=== PATIENT | male | born 1990 | race Caucasian/White ===

== ENCOUNTER 2016-09-07 10:38 | Emergency (ER) | payer OTHER, MEDICAID ==
[~2016-09-07] VITALS: Ht 188 cm; Wt 111.1 kg
[~2016-09-07 10:38] MED LIST: ALBU17AE3 IH; FLUT12AE6 IH; HYDR-757 PO; IPRA4AER IH; MELO15TA39 PO; PRD20T PO; TIOT4MIS2 IH; [UNRECOGNIZED DRUG - CODE] PO; advair
--- NOTE | 2016-09-07 10:52 | ED EENT ---
History of Present Illness General Stated Complaint: KNOT ON BACK OF RIGHT CALF Source: patient Exam Limitations: no limitations History of Present Illness Time seen by provider: 10:48 Initial Comments To ER with a palpable knot to the back of the calf on the right side since yesterday. His boss recently had a blood clot and he is concerned that he may have this too. No swelling in the leg. Timing/Duration: abrupt Severity: moderate Allergies and Home Medications Allergies Coded Allergies: No Known Drug Allergies (Unverified , 01/25/13) Home Medications Albuterol 17 Gm Inh, 1 SPRAY IH UD, #1 (Reported) Albuterol/Ipratropium 4 Gm Aero, 4 GM IH, (Reported) Fluticasone/Salmeterol 12 Gm Hfa.aer.ad, 1 EACH IH, (Reported) Hydrocodone/Acetaminophen 1 Each Tablet, 1 EACH PO Q4H PRN for PAIN, #20 Prescribed by: IRINA POTTER on 08/27/15 1431 Meloxicam 15 Mg Tablet, 15 MG PO DAILY, #7 Prescribed by: SUJATA BOWENS on 06/15/15 1019 Prednisone 20 Mg Tab, 40 MG PO DAILY, #8 Prescribed by: IRINA POTTER on 08/27/15 1431 Tiotropium Geary 4 Gm Mist.inhal, 4 GM IH, (Reported) Review of Systems Constitutional: see HPI Eyes: No Symptoms Reported Ears: No Symptoms Reported Nose: no symptoms reported Mouth: no symptoms reported Throat: no symptoms reported Respiratory: see HPI, No cough, No hemoptysis, No short of breath Cardiovascular: no symptoms reported Musculoskeletal: no symptoms reported Past Uybrbpv-Ojazma-Uheipc Hx Patient Social History Recent Foreign Travel: No Contact w/Someone Who Travel: No Immunizations Up To Date Tetanus Booster (TDap): Less than 5yrs Seasonal Allergies Seasonal Allergies: Yes Surgeries HX Surgeries: Yes (TEETH) Respiratory Hx Respiratory Disorders: Yes Respiratory Disorders: Asthma Cardiovascular Hx Cardiac Disorders: No Neurological Hx Neurological Disorders: No Reproductive System Hx Reproductive Disorders: No Genitourinary Hx Genitourinary Disorders: No Gastrointestinal Hx Gastrointestinal Disorders: No Musculoskeletal Hx Musculoskeletal Disorders: No Endocrine Hx Endocrine Disorders: No HEENT HX ENT Disorders: No Cancer Hx Cancer: No Psychosocial Hx Psychiatric Problems: No Integumentary HX Skin/Integumentary Disorder: No Blood Transfusions Hx Blood Disorders: No Physical Exam General Appearance: WD/WN, no apparent distress Eyes: bilateral eye EOMI, bilateral eye PERRL, bilateral eye normal inspection Ears: bilateral ear TM normal, bilateral ear auricle normal, bilateral ear canal normal Neck: non-tender, full range of motion Respiratory: normal breath sounds, no respiratory distress, no accessory muscle use Gastrointestinal: non tender, soft Neurologic/Psychiatric: alert, normal mood/affect, oriented x 3 Skin: normal color, warm/dry There is a palpable marble sized knot to the back of the calf on the right side most easily palpable with plantar flexion of the foot. This is mobile, soft, there is no discoloration of the surrounding skin. There is no swelling of the ankle or leg. Progress/Results/Core Measures Results/Orders My Orders Orders - IRINA POTTER APRN Venous Lower Ext Rt (09/07/16 10:47) Departure Impression Impression: Primary Impression: Nodule of leg Disposition: 01 HOME, SELF-CARE Condition: Stable Departure-Patient Inst. Decision time for Depature: 10:51 Referrals: RONALD SHAW MD (PCP/Family) Primary Care Physician Patient Instructions: NO INSTRUCTIONS GIVEN Add. Discharge Instructions: 1. Follow up with your doctor next week 2. Return to ER for any concerns IRINA POTTER APRN Sep 07, 2016 10:52
--- NOTE | 2016-09-07 11:34 | Diagnostic Imaging Report ---
EXAMINATION: Right lower extremity duplex venous ultrasound. TECHNIQUE: DVT protocol. Multiple sonographic images with color Doppler and waveform interrogation were performed of the right lower extremity veins with compression and augmentation maneuvers. INDICATION: Right leg pain and calf lump. FINDINGS: The right lower extremity veins from the groin to below the knee veins were examined with normal color-flow, compressibility and normal waveform demonstrated. The great saphenous vein is patent. Lump in the calf area is examined and demonstrate no underlying abnormality. IMPRESSION: No evidence of DVT in the right lower extremity. Dictated by: Dictated on workstation # [id number]
[2016-09-07 12:00] VITALS: BP 133/97
== END 2016-09-07 12:00 | disposition home or self-care (01) ==
LOC: EDUNIT# 10:38 → ER 10:40
DX: R22.41 Localized swelling, mass and lump, right lower limb (principal)
CPT/HCPCS: 99283

== ENCOUNTER 2018-07-21 15:39 | Emergency (ER) | payer MEDICAID, OTHER ==
[~2018-07-21] VITALS: Ht 188 cm; Wt 111.1 kg
[~2018-07-21 15:39] MED LIST changes: +HYDR-4226 PO
--- NOTE | 2018-07-21 16:29 | ED Integumentary General ---
General Chief Complaint: Laceration Stated Complaint: LACERATION TO FACE Nursing Triage Note: PATIENT STATES THAT HE WAS TIGHTENING SOME LUG NUTS ON HIS TRUCK AND DROPPED A TOOL ON HIS FACE. Source: patient Exam Limitations: no limitations History of Present Illness Date Seen by Provider: Jul 21, 2018 Time Seen by Provider: 16:20 Initial Comments 27-year-old male patient presents to the emergency department with complaints of a laceration to the nose. Patient states he was tightening like nuts on his truck when the tire iron slipped and hit him in the face. Denies loss of consciousness, headache, dizziness, changes in vision, neck pain, back pain, or feeling dazed. Location Injury Occurred: home Timing/Duration: just prior to arrival Location: face Modifying Factors: worse with other (worse with palpation) Allergies and Home Medications Allergies Coded Allergies: No Known Drug Allergies (Unverified , 01/25/13) Home Medications Albuterol 17 Gm Inh, 1 SPRAY IH UD, (Reported) Patient Home Medication List Home Medication List Reviewed: Yes Review of Systems Review of Systems Constitutional: No dizziness EENTM: see HPI, other (pain at the laceration site of the nasal bridge); No ear discharge, No ear pain, No blurred vision, No double vision, No eye pain, No tearing, No vision loss, No mouth pain, No mouth swelling, No epistaxis, No nose congestion, No throat pain, No throat swelling Respiratory: no symptoms reported Cardiovascular: no symptoms reported Gastrointestinal: no symptoms reported Musculoskeletal: no symptoms reported Skin: see HPI Psychiatric/Neurological: No Symptoms Reported All Other Systems Reviewed Negative Unless Noted: Yes (Negative excepted noted.) Past Tqctoqf-Ikqofi-Uoqwjd Hx Past Med/Social Hx: Reviewed Nursing Past Med/Soc Hx Patient Social History Recent Foreign Travel: No Contact w/Someone Who Travel: No Recent Infectious Disease Expo: No Recent Hopitalizations: No Immunizations Up To Date Tetanus Booster (TDap): Less than 5yrs Seasonal Allergies Seasonal Allergies: Yes Past Medical History Surgeries: Yes Respiratory: Yes Asthma Currently Using CPAP: Yes Cardiac: No Neurological: No Reproductive Disorders: No Gastrointestinal: No Musculoskeletal: No Family Medical History Reviewed Nursing Family Hx No Pertinent Family Hx Physical Exam Vital Signs Vital Signs - First Documented 07/21/18 16:00 Temp 98.5 Pulse 64 Resp 18 B/P (MAP) 133/85 (101) Pulse Ox 99 Capillary Refill : Less Than 3 Seconds General Appearance: WD/WN, no apparent distress HEENT: PERRL/EOMI, TMs normal, pharynx normal, other (2 cm irregular superficial laceration to the nasal bridge with minimal swelling. no active bleeding or deformity noted. 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 no active bleeding or deformity noted. ) Procedures/Interventions Wound Location: Face (nasal bridge) Wound Length (cm): 2 Wound's Depth, Shape: superficial, irregular Wound Explored: clean Betadine Prep?: No (wound scrubbed with chlorasept and sterile saline.) Other Closure Supply: Wound Adhesive Layer Closure?: 1 Sterile Dressing Applied?: No Progress blood loss minimal. patient tolerated the procedure well. Progress/Results/Core Measures Results/Orders Vital Signs/I&O 07/21/18 07/21/18 16:00 16:38 Temp 98.5 98.5 Pulse 64 64 Resp 18 18 B/P (MAP) 133/85 (101) 133/85 (101) Pulse Ox 99 99 Blood Pressure Mean: 101 Departure Communication (Admissions) Patient seen, evaluated, and wound repair performed. Plan for discharge to home. Impression Primary Impression: Laceration of nose without complication Qualified Codes: S01.21XA - Laceration without foreign body of nose, initial encounter Disposition: HOME, SELF-CARE Condition: Improved Departure-Patient Inst. Decision time for Depature: 16:28 Referrals: RONALD SHAW MD (PCP/Family) Primary Care Physician Patient Instructions: Laceration Repair With Glue (DC) Add. Discharge Instructions: All discharge instructions reviewed with patient and/or family. Voiced understanding. Tylenol Extra Strength [id number] as directed for pain. Ibuprofen 800 mg by mouth every 8 hours as needed for pain. Use an ice pack as needed for pain and swelling. Tomorrow morning you may begin showering. Avoid scrubbing the glue. Follow-up with your family practitioner for recheck if needed. Return to the emergency department for worsened symptoms, headache, dizziness, changes in vision, slurred speech, or any other concerns. PEPE LIAO Jul 21, 2018 16:29
[2018-07-21 16:38] VITALS: BP 133/85
== END 2018-07-21 16:40 | disposition home or self-care (01) ==
LOC: EDUNIT# 15:39 → ER 15:40
DX: S01.21XA Laceration without foreign body of nose, initial encounter (principal); J45.909 Unspecified asthma, uncomplicated; Z79.51 Long term (current) use of inhaled steroids; W22.09XA Striking against other stationary object, initial encounter; Y92.009 Unspecified place in unspecified non-institutional (private) residence as the place of occurrence of the external cause
CPT/HCPCS: 99282